=== PATIENT | male | born 1990 | race African-American/Black ===

== ENCOUNTER 2016-07-07 16:03 | Emergency (ER) | payer OTHER ==
[2016-07-07 15:16] LABS: BARBITURATES NEG (NEG); COCAINE NEG (NEG); MARIJUANA NEG (NEG); OPIATES NEG (NEG); TRICYCLIC ANTIDEPRESSANTS NEG (NEG); U METHADONE NEG (NEG)
[2016-07-07 15:17] LABS: AMPHETAMINE POS (NEG); BENZODIAZEPINES POS (NEG)
[~2016-07-07 16:03] MED LIST: IBUPROFEN800 MG PO; KEFLEX PO; ULTRAM PO
== END 2016-07-07 16:25 | disposition home or self-care (01) ==
LOC: CED 16:03
PROVIDERS: Emergency Medicine
DX: R44.1 Visual hallucinations (principal); F17.210 Nicotine dependence, cigarettes, uncomplicated
CPT/HCPCS: 80307; 99283

== ENCOUNTER 2016-07-30 12:27 | Emergency (ER) | payer OTHER | END 2016-07-30 12:55 | disposition home or self-care (01) | LOC: CED 12:27 → CFTX 12:27 | DX: Z48.02 Encounter for removal of sutures (principal) | CPT/HCPCS: 99281 ==

== ENCOUNTER 2016-09-01 19:54 | Emergency (ER) | payer OTHER ==
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
[2016-09-01 21:00] LABS: HEMATOCRIT 42.5 % (38.0-50.0); HEMOGLOBIN 13.9 gm/dL (13.0-16.0); MEAN CELL VOLUME 95.2 FL (83-96); MEAN CORPUSCULAR HEMOGLOBIN 31.2 PG (28-34); MEAN CORPUSCULAR HGB CONC 32.8 g/dL (30-36); MEAN PLATELET VOLUME 8.6 FL (6.5-11.5); RED BLOOD COUNT 4.47 X10e (3.90-5.60); RED CELL DISTRIBUTION WIDTH 15.1 % (11.0-15.5); WHITE BLOOD COUNT 10.6 X10e3 (4.0-10.5)
[2016-09-01 21:28] LABS: INR 1.2; PARTIAL THROMBOPLASTIN TIME 25.7 SECONDS (23.5-31.3); PROTHROMBIN TIME (PATIENT) 12.7 SECONDS (10.0-11.7)
[2016-09-01 21:29] LABS: BUN/CREATININE RATIO 14.44; CALCIUM SERUM 9.6 mg/dL (8.4-10.2); CREATININE SERUM 0.9 mg/dL (0.6-1.4); GLOM FILT RATE Estimated 136.1 mL/min (>60); POTASSIUM 3.2 mmol/L (3.5-5.1)
== END 2016-09-01 23:00 | disposition home or self-care (01) ==
LOC: CED 19:54
PROVIDERS: Emergency Medicine
DX: S02.2XXA Fracture of nasal bones, initial encounter for closed fracture (principal); S06.0X9A Concussion with loss of consciousness of unspecified duration, initial encounter; F17.210 Nicotine dependence, cigarettes, uncomplicated; Y04.2XXA Assault by strike against or bumped into by another person, initial encounter; Y92.410 Unspecified street and highway as the place of occurrence of the external cause
CPT/HCPCS: 36415; 70450; 70486; 72125; 80048; 85027; 85610; 85730; 99284; G0480